=== PATIENT | male | born 1955 | race Caucasian/White ===

== ENCOUNTER 2023-08-19 22:34 | Emergency (ER) | payer MEDICARE, MEDICAID, SELFPAY ==
--- NOTE | 2023-08-19 22:36 | XRR_ITS ---
PROCEDURE INFORMATION: Exam: XR Chest Exam date and time: 08/19/2023 11:32 PM Age: 67 years old Clinical indication: Dyspnea; Patient HX: Patient says he has had a cold, coughing. He says he is always soc but his SOB has become worse as of recent. Smoker, no HX of cancer TECHNIQUE: Imaging protocol: Radiologic exam of the chest. Views: 1 view. COMPARISON: No relevant prior studies available. FINDINGS: Lungs: Unremarkable. No consolidation. Pleural spaces: Unremarkable. No pleural effusion. No pneumothorax. Heart/Mediastinum: Unremarkable. No cardiomegaly. Bones/joints: Unremarkable. XR/XR chest 1V portable [id number] IMPRESSION: No acute findings.
[2023-08-19 22:44] VITALS: BP 194/100; PULSE 68; RESP 16; TEMP 36.3; O2SAT 98
--- NOTE | 2023-08-19 22:56 | ECG_ITS ---
[facility] Test Date: 2023-08-19 Pat Name: Antelmo Urrutia Department: Room: Gender: Male [employer]: : 1955 Requested By: Imtiaz Blackburn Order Number: [id number] Michelle MD: Sudeep Schmitz M.D. Measurements Intervals Gore Rate: 61 P: 66 WA: 161 QRS: 22 QRSD: 90 T: 66 QT: 378 QTc: 383 Interpretive Statements SINUS RHYTHM NONSPECIFIC T-WAVE ABNORMALITY No previous ECG available for comparison Electronically Signed On 08-21-2023 10:45:45 [employer]ISHING [employer] OPERATOR by Sudeep Schmitz M.D. [id number]
[2023-08-19 22:57] LABS: Basophils % 0.4 %; Eosinophils # 0.1 10^3/uL (0.0-0.8); Eosinophils % 2.3 %; Hematocrit 44.5 % (37-53); Lymphocytes # 1.6 10^3/uL (0.8-4.8); Lymphocytes % 33.8 %; Mean Corpuscular HGB Conc 33.7 g/dL (30-55); Mean Platelet Volume 10.2 fL (7.4-10.4); Monocytes # 0.6 10^3/uL (0.2-0.9); Monocytes % 13.1 %; Neutrophils # 2.38 10^3/uL (1.8-7.7); Neutrophils % 50.2 %; Nucleated Red Blood Cells % 0 %; Platelet Count 193 10^3/cmm (157-399); Red Cell Distribution Width 14.2 % (12.1-15.1); White Blood Count 4.74 10^3/uL (3.29-11.43)
[2023-08-19 23:25] LABS: Alanine Aminotransferase 24 U/L (0-41); Alkaline Phosphatase 116 U/L (40-130); Anion Gap 15.1 (5-19); Aspartate Amino Transferase 19 U/L (0-40); Blood Urea Nitrogen 18 mg/dL (8-23); Calcium 8.7 mg/dL (8.5-10.5); Carbon Dioxide 28 mmol/L (22-29); Chloride 101 mmol/L (98-107); Globulin 2.9 g/dL (1.3-4.6); Glucose 106 mg/dL (65-115); NT Pro B Type Natriuretic Pept 38 pg/mL (0-125); Osmolality Calculated 292 mOsm/kg (285-295); Potassium 4.1 mmol/L (3.5-5.1); Sodium 140 mmol/L (136-145); Total Bilirubin 0.2 mg/dL (0.15-1.2); Total Protein 6.9 g/dL (6.6-8.7)
--- NOTE | 2023-08-19 23:31 | ED_ITS ---
HPI - SOB/Dyspnea 2 General: Chief Complaint: Shortness of Breath/Dyspnea Stated Complaint: sob, high bp Time Seen by Provider: 08/19/23 23:11 Source: patient Mode of arrival: ambulatory Limitations: no limitations History of Present Illness: HPI Narrative: 67-year-old male who states that last we ek he has had some cough congestion states he was seen last week and started on steroids and inhaler has had some improvement states he still had a slight cough his pulse ox here is 98% on room air he denies any fevers denies any vomiting or diarrhea. Associated symptoms: Deny abdominal pain, chest pain, fever(s), nausea or vomiting Review of Systems 2 Const: Denies: fever(s), chills, body aches or change in appetite Eyes: Denies: blurry vision or eye discomfort ENMT: Denies: throat pain or dental pain Card: Denies: chest pain Resp: Reports: dyspnea and non-productive cough GI: Denies: abdominal pain, nausea, vomiting or diarrhea Musc: Denies: neck pain or back pain Skin/Breast: Denies: rash Neuro: Denies: headache(s) Psych: Denies: depression Ayo/Lymph: Denies: easy bruising All/Imm: Denies: urticaria Physical Exam 2 Const: COMMON NORMALS: no acute distress, patient oriented x3 and healthy appearing HENMT: COMMON NORMALS: normocephalic and atraumatic HEAD & SCALP: n ormocephalic and atraumatic Eye: COMMON NORMALS: Equal, round and reactive pupils present and EOMs intact bilaterally PUPIL: Yes Equal, round and reactive pupils present Neck/C-Spine: COMMON NORMALS: full ROM and supple Chest: COMMONS NORMALS: normal inspection of the chest and normal palpation of entire chest wall Resp: COMMON NORMALS: normal respiratory effort, No retractions, No use of accessory muscles and clear to auscultation bilaterally AUSCULTATION: clear to auscultation bilaterally Cardio: COMMON NORMALS: regular rate, regular rhythm and No murmurs present (Cardio) RATE: regular rate RHYTHM: regular rhythm GI: COMMON NORMALS: Normal to inspection, nondistended, normoactive bowel sounds present, Soft to palpation, non-tender and no masses PALPATION: Yes Soft to palpation Extremity: COMMON NORMALS: normal to inspection and full ROM Neuro: COMMON NORMALS: patient oriented x3, moves all extremities and no focal motor deficits Psych: COMMON NORMALS: mental status grossly normal, Normal thought process present and cooperative THOUGHT PROCESS: Normal thought process present Skin: COMMON NORMALS: no rashes or lesions noted and no wounds GENERAL SKIN EXAM: no rashes or lesions noted Course 2 Vital Signs: Vital signs: Vital Signs Temperature 97.4 F L 08/19/23 22:44 Pulse Rate 62 08/19/23 23:44 Respiratory Rate 18 08/19/23 23:44 Blood Pressure 153/96 08/19/23 23:44 Pulse Oximetry 95 08/19/23 23:44 Oxygen Delivery Me thod Room Air 08/19/23 23:44 MDM - SOB/Dyspnea Medical Decision Making Patient presents here with cough congestion likely upper respiratory infection patient's x-ray shows no pneumonia he is well-appearing here no distress he stable for discharge she is to continue his steroids and albuterol return if worsening Medical Records I reviewed the patient's medical records. Lab Data I reviewed the patient's lab results. 08/19/23 22:53 08/19/23 22:53 Labs/Radiology: Radiology Impressions Chest X-Ray 08/19/23 22:36 IMPRESSION: No acute findings. Laboratory Results WBC 4.74 10^3/uL (3.29-11.43) 08/19/23 22:53 RBC 5.00 10^6/uL (3.85-5.65) 08/19/23 22:53 Hgb 15.00 g/dL (11.27-16.99) 08/19/23 22:53 Hct 44.5 % (37-53) 08/19/23 22:53 MCV 89.0 fl (82-101) 08/19/23 22:53 MCH 30.0 pg (27-33) 08/19/23 22:53 MCHC 33.7 g/dL (30-55) 08/19/23 22:53 RDW 14.2 % (12.1-15.1) 08/19/23 22:53 Plt Count 193 10^3/cmm (157-399) 08/19/23 22:53 MPV 10.2 fL (7.4-10.4) 08/19/23 22:53 Neut % (Auto) 50.2 % 08/19/23 22:53 Lymph % (Auto) 33.8 % 08/19/23 22:53 [place] % (Auto) 13.1 % 08/19/23 22:53 Eos % (Auto) 2.3 % 08/19/23 22:53 Baso % (Auto) 0.4 % 08/19/23 22:53 Neut # (Auto) 2.38 10^3/uL (1.8-7.7) 08/19/23 22:53 Lymph # (Auto) 1.6 10^3/uL (0.8-4.8) 08/19/23 22:53 [place] # (Auto) 0.6 10^3/uL (0.2-0.9) 08/19/23 22:53 Eos # (Auto) 0.1 10^3/uL (0.0-0.8) 08/19/23 22:53 Baso # (Auto) 0.0 10^3/uL (0.0-0.1) 08/19/23 22:53 Nucleated RBC % (auto) 0 % 08/19/23 22:53 Nucleated RBCs # 0.0 /100WBC 08/19/23 22:53 Sodium 140 mmol/L (136-145) 08/19/23 22:53 Potassium 4.1 mmol/L (3.5-5.1) 08/19/23 22:53 Chloride 101 mmol/L (98-107) 08/19/23 22:53 Carbon Dioxide 28 mmol/L (22-29) 08/19/23 22:53 Anion Gap 15.1 (5-19) 08/19/23 22:53 BUN 18 mg/dL (8-23) 08/19/23 22:53 Creatinine 1.0 mg/dL (0.7-1.2) 08/19/23 22:53 GFR Calculation 75.0 mL/min (90-130) L 08/19/23 22:53 Glucose 106 mg/dL (65-115) 08/19/23 22:53 Calculated Osmolality 292 mOsm/kg (285-295) 08/19/23 22:53 Calcium 8.7 mg/dL (8.5-10.5) 08/19/23 22:53 Total Bilirubin 0.2 mg/dL (0.15-1.2) 08/19/23 22:53 AST 19 U/L (0-40) 08/19/23 22:53 ALT 24 U/L (0-41) 08/19/23 22:53 Alkaline Phosphatase 116 U/L (40-130) 08/19/23 22:53 NT-Pro-B Natriuret Pep 38 pg/mL (0-125) 08/19/23 22:53 Total Protein 6.9 g/dL (6.6-8.7) 08/19/23 22:53 Albumin 4.0 g/dL (3.5-5.2) 08/19/23 22:53 Globulin 2.9 g/dL (1.3-4.6) 08/19/23 22:53 All radiology interpretation(s) finalized by discharge EKG Data EKG 1: I personally reviewed and interpreted this EKG as follows: EKG Interpretation Date: 08/20/23 EKG interpretation time: 22:56 Interpretation: nsr hr [address] or t wave abnormalities qrs 90 qtc 381 Discharge Plan Discharge Patient Disposition: Home Clinical Impression: URI (upper respiratory infection) Qualifiers: URI type: unspecified URI Qualified Code(s): J06.9 - Acute upper respiratory infection, unspecified Condition: Stable Discharge Orders: Discharge ED (Routine); Ordered 08/20/23 Ordered By: Imtiaz Blackburn Discharge Diet: Advance as tolerated Discharge Activity: Resume usual activity Patient Instructions: Upper Respiratory Infection (ED) Coding Level of Care Code ED Service Support Representative for [employer]
[2023-08-19 23:44] VITALS: BP 153/96; PULSE 62; RESP 18; O2SAT 95
[2023-08-20 00:23] VITALS: BP 153/96; PULSE 87; RESP 18; O2SAT 97
== END 2023-08-20 00:25 | disposition home or self-care (01) ==
PROVIDERS: Emergency Provider Emergency Medicine
DX: J06.9 Acute upper respiratory infection, unspecified (principal)
CPT/HCPCS: 36415; 71045; 80053; 83880; 85025; 93005; 99285